=== PATIENT | male | born 1940 | race Two or more races ===

== ENCOUNTER → 2018-10-02 | Outpatient (CLI) | payer MEDICARE ==
[2018-10-02 12:20] LABS: ALANINE AMINOTRANSFERASE 37 U/L (21-72); ALBUMIN 4.6 g/dL (3.5-5.0); ALKALINE PHOSPHATASE 56 U/L (38-126); ANION GAP 7 (5-19); ASPARTATE AMINO TRANSFERASE 26 U/L (17-59); BILIRUBIN,DIRECT 0.1 mg/dL (0.0-0.4); BILIRUBIN,TOTAL 0.9 mg/dL (0.2-1.3); BLOOD UREA NITROGEN 18 mg/dL (7-20); CARBON DIOXIDE 32 mmol/L (22-30); CHLORIDE 105 mmol/L (98-107); GLUCOSE 92 mg/dL (75-110); POTASSIUM 5.1 mmol/L (3.6-5.0); SODIUM 143.7 mmol/L (137-145); TOTAL PROTEIN 6.7 g/dL (6.3-8.2)
[2018-10-02 12:21] LABS: ABSOLUTE MONOCYTES (AUTO) 0.5 10^3/uL (0.1-1.4); ABSOLUTE NEUT (AUTO) 2.7 10^3/uL (1.7-8.2); BASOPHILS % (AUTO) 0.4 % (0-2); EOSINOPHILS % (AUTO) 0.9 % (0-6); HEMATOCRIT 40.1 % (37.9-51.0); HEMOGLOBIN 13.6 g/dL (13.5-17.0); LYMPHOCYTES % (AUTO) 38.5 % (13-45); MEAN CORPUSCULAR HEMOGLOBIN 31.4 pg (27.0-33.4); MEAN CORPUSCULAR HGB CONC 33.9 g/dL (32.0-36.0); MEAN CORPUSCULAR VOLUME 93 fl (80-97); MONOCYTES % (AUTO) 8.6 % (3-13); RED BLOOD COUNT 4.32 10^6/uL (4.35-5.55); RED CELL DISTRIBUTION WIDTH 15.7 % (11.5-14.0); SEGMENTED NEUTROPHILS % (AUTO) 51.6 % (42-78); TOTAL CELLS COUNTED % (AUTO) 100 %; WHITE BLOOD COUNT 5.3 10^3/uL (4.0-10.5)
[2018-10-02 12:41] LABS: CHOLESTEROL 122.43 mg/dL (0-200); TRIGLYCERIDES 71 mg/dL (<150)
[2018-10-02 12:52] LABS: DIRECT LDL 68 mg/dL (<100)
[2018-10-02 12:59] LABS: PLATELET COUNT 32 10^3/uL (150-450)
[2018-10-04 11:35] LABS: PLATELET COUNT 33 10^3/uL (150-450)
== END ==
LOC: LAB 10:38
PROVIDERS: ATTEND Internal Medicine
DX: Z00.00 Encounter for general adult medical examination without abnormal findings (principal); D69.6 Thrombocytopenia, unspecified; I25.119 Atherosclerotic heart disease of native coronary artery with unspecified angina pectoris; I10 Essential (primary) hypertension; E78.5 Hyperlipidemia, unspecified; Z79.899 Other long term (current) drug therapy; Z68.22 Body mass index [BMI] 22.0-22.9, adult
CPT/HCPCS: 36415; 80053; 80061; 82652; 83036; 84443; 85025; 85049

== ENCOUNTER → 2018-12-19 | Outpatient (CLI) | payer MEDICARE ==
[2018-12-19 10:13] LABS: ANION GAP 9 (5-19); BLOOD UREA NITROGEN 19 mg/dL (7-20); CARBON DIOXIDE 30 mmol/L (22-30); CHLORIDE 105 mmol/L (98-107); GLUCOSE 92 mg/dL (75-110); POTASSIUM 5.2 mmol/L (3.6-5.0); SODIUM 143.9 mmol/L (137-145)
[2018-12-19 10:20] LABS: PLATELET COUNT 28 10^3/uL (150-450)
[2018-12-20 10:37] LABS: PATH REVIEW PATHOLOGIST REVIEWED
== END ==
LOC: OD 09:07
PROVIDERS: ATTEND Internal Medicine
DX: N19 Unspecified kidney failure (principal); D69.6 Thrombocytopenia, unspecified
CPT/HCPCS: 36415; 80048; 85049

== ENCOUNTER 2019-01-03 08:30 | Outpatient (CLI) | payer MEDICARE ==
[~2019-01-03 08:30] MED LIST: ACETAMINOPHEN 325 MG TABLET PO PRN; DIPHENHYDRAMINE HCL 50 MG in NORMAL SALINE 50 ML IV PRN; NORMAL SALINE 250 ML IV PRN; NORMAL SALINE IV PRN; RITUXIMAB IV PRN
[2019-01-03 09:22] VITALS: BP 105/47
== END 2019-01-03 13:27 | disposition home or self-care (01) ==
LOC: II 08:30 → 5TH 08:33 → II 13:27
PROVIDERS: ATTEND Internal Medicine Hematology & Oncology
PROC: 3E0330M Introduction of Antineoplastic, Monoclonal Antibody, into Peripheral Vein, Percutaneous Approach (ICD-10-PCS; principal; 2019-01-03)
PROC: 3E033GC Introduction of Other Therapeutic Substance into Peripheral Vein, Percutaneous Approach (ICD-10-PCS; 2019-01-03)
DX: D69.3 Immune thrombocytopenic purpura (principal)
CPT/HCPCS: 96413; 96415; A9270; J1200; J7040; J9312 ×2; 96367

== ENCOUNTER 2019-01-10 08:21 | Outpatient (CLI) | payer MEDICARE ==
[~2019-01-10 08:21] MED LIST changes: +NORMAL SALINE 250 ML @ KVO IV PRN; -NORMAL SALINE 250 ML IV PRN
[2019-01-10 08:42] VITALS: BP 118/44
== END 2019-01-10 11:45 | disposition home or self-care (01) ==
LOC: II 08:21 → 5TH 08:22 → II 11:45
PROVIDERS: ATTEND Internal Medicine Hematology & Oncology
PROC: 3E0430M Introduction of Antineoplastic, Monoclonal Antibody, into Central Vein, Percutaneous Approach (ICD-10-PCS; principal; 2019-01-10)
PROC: 3E043GC Introduction of Other Therapeutic Substance into Central Vein, Percutaneous Approach (ICD-10-PCS; 2019-01-10)
DX: D69.3 Immune thrombocytopenic purpura (principal)
CPT/HCPCS: 96413; 96415; 96365; A9270; J1200; J7040; J9312 ×2; 96367

== ENCOUNTER 2019-01-17 08:20 | Outpatient (CLI) | payer MEDICARE ==
[~2019-01-17 08:20] MED LIST changes: -NORMAL SALINE 250 ML @ KVO IV PRN
[2019-01-17 08:38] VITALS: BP 114/43
[2019-01-17] MEDS ORDERED: NORMAL SALINE 250 ML @ KVO IV PRN (09:21)
[2019-01-18] MEDS ORDERED: DIPHENHYDRAMINE 50 MG in NS 50 ML IV PRN (05:00)
[2019-01-18] MEDS ORDERED: NORMAL SALINE 250 ML @ KVO IV PRN (05:00)
== END 2019-01-17 13:40 | disposition home or self-care (01) ==
LOC: II 08:20 → 5TH 08:20 → II 13:40
PROVIDERS: ATTEND Internal Medicine
PROC: 3E0330M Introduction of Antineoplastic, Monoclonal Antibody, into Peripheral Vein, Percutaneous Approach (ICD-10-PCS; principal; 2019-01-17)
PROC: 3E033GC Introduction of Other Therapeutic Substance into Peripheral Vein, Percutaneous Approach (ICD-10-PCS; 2019-01-17)
DX: D69.3 Immune thrombocytopenic purpura (principal)
CPT/HCPCS: 96413; 96415; 96367; A9270; J1200; J7040; J9312 ×2; 96365

== ENCOUNTER 2019-01-24 08:35 | Outpatient (CLI) | payer MEDICARE ==
[~2019-01-24 08:35] MED LIST changes: +DIPHENHYDRAMINE 50 MG in NS 50 ML IV PRN; -DIPHENHYDRAMINE HCL 50 MG in NORMAL SALINE 50 ML IV PRN; -NORMAL SALINE IV PRN; -RITUXIMAB IV PRN
[2019-01-24] MEDS ORDERED: NORMAL SALINE 250 ML IV PRN (08:49)
[2019-01-24] MEDS ORDERED: RITUXIMAB IV PRN (08:56)
[2019-01-24] MEDS ORDERED: NORMAL SALINE IV PRN (08:56)
[2019-01-24 10:12] VITALS: BP 110/39
== END 2019-01-24 13:42 | disposition home or self-care (01) ==
LOC: II 08:35 → 5TH 08:37 → II 13:42
PROVIDERS: ATTEND Internal Medicine Hematology & Oncology
PROC: 3E0330M Introduction of Antineoplastic, Monoclonal Antibody, into Peripheral Vein, Percutaneous Approach (ICD-10-PCS; principal; 2019-01-24)
PROC: 3E033GC Introduction of Other Therapeutic Substance into Peripheral Vein, Percutaneous Approach (ICD-10-PCS; 2019-01-24)
DX: D69.3 Immune thrombocytopenic purpura (principal)
CPT/HCPCS: 96413; 96415; 96367; A9270; J1200; J7040; J9312 ×2; 96365

== ENCOUNTER → 2019-02-19 | Outpatient (CLI) | payer MEDICARE, OTHER ==
[2019-02-19 10:55] LABS: CHOLESTEROL 122.21 mg/dL (0-200); TRIGLYCERIDES 46 mg/dL (<150)
[2019-02-19 11:06] LABS: DIRECT LDL 65 mg/dL (<100)
[2019-02-19 11:20] LABS: PLATELET COUNT 37 10^3/uL (150-450)
== END ==
LOC: OD 09:36
PROVIDERS: ATTEND Internal Medicine
DX: E78.5 Hyperlipidemia, unspecified (principal); D69.6 Thrombocytopenia, unspecified
CPT/HCPCS: 36415; 80061; 85049

== ENCOUNTER → 2019-05-20 | Outpatient (CLI) | payer MEDICARE, OTHER ==
[2019-05-20 10:30] LABS: PLATELET COUNT 42 10^3/uL (150-450)
[2019-05-20 10:48] LABS: ALBUMIN 3.8 g/dL (3.5-5.0); ALKALINE PHOSPHATASE 70 U/L (38-126); ASPARTATE AMINO TRANSFERASE 32 U/L (17-59); BILIRUBIN,DIRECT 0.1 mg/dL (0.0-0.4); BILIRUBIN,TOTAL 0.9 mg/dL (0.2-1.3); BLOOD UREA NITROGEN 16 mg/dL (7-20); CALCIUM 9.6 mg/dL (8.4-10.2); CHOLESTEROL 113.12 mg/dL (0-200); GLUCOSE 94 mg/dL (75-110); POTASSIUM 4.8 mmol/L (3.6-5.0); TOTAL PROTEIN 6.2 g/dL (6.3-8.2); TRIGLYCERIDES 59 mg/dL (<150)
[2019-05-20 10:53] LABS: ANION GAP 5 (5-19); CARBON DIOXIDE 30 mmol/L (22-30); CHLORIDE 106 mmol/L (98-107)
[2019-05-20 10:59] LABS: DIRECT LDL 61 mg/dL (<100)
== END ==
LOC: OD 08:45
PROVIDERS: ATTEND Family Medicine
DX: D69.6 Thrombocytopenia, unspecified (principal); E78.5 Hyperlipidemia, unspecified; R10.9 Unspecified abdominal pain
CPT/HCPCS: 36415; 80053; 80061; 85049

== ENCOUNTER → 2019-09-12 | Outpatient (CLI) | payer MEDICARE, OTHER ==
[2019-09-12 10:32] LABS: ANION GAP 8 (5-19); BLOOD UREA NITROGEN 21 mg/dL (7-20); C-REACTIVE PROTEIN 27.1 mg/L (<10.0); CALCIUM 9.2 mg/dL (8.4-10.2); CARBON DIOXIDE 26 mmol/L (22-30); CHLORIDE 104 mmol/L (98-107); GLUCOSE 106 mg/dL (75-110); POTASSIUM 5.2 mmol/L (3.6-5.0)
[2019-09-13 10:28] LABS: ABSOLUTE LYMPHOCYTES (AUTO) 3.6 10^3/uL (0.5-4.7); ABSOLUTE MONOCYTES (AUTO) 0.5 10^3/uL (0.1-1.4); ABSOLUTE NEUT (AUTO) 2.1 10^3/uL (1.7-8.2); BASOPHILS % (AUTO) 0.4 % (0-2); EOSINOPHILS % (AUTO) 0.3 % (0-6); HEMATOCRIT 33.3 % (37.9-51.0); HEMOGLOBIN 11.1 g/dL (13.5-17.0); LYMPHOCYTES % (AUTO) 57.7 % (13-45); MEAN CORPUSCULAR HGB CONC 33.5 g/dL (32.0-36.0); MEAN CORPUSCULAR VOLUME 93 fl (80-97); MONOCYTES % (AUTO) 8.1 % (3-13); RED BLOOD COUNT 3.59 10^6/uL (4.35-5.55); RED CELL DISTRIBUTION WIDTH 15.5 % (11.5-14.0); SEGMENTED NEUTROPHILS % (AUTO) 33.5 % (42-78); TOTAL CELLS COUNTED % (AUTO) 100 %; WHITE BLOOD COUNT 6.3 10^3/uL (4.0-10.5)
[2019-09-13 10:59] LABS: PLATELET COUNT 53 10^3/uL (150-450)
[2019-09-13 11:05] LABS: ERYTHROCYTE SEDIMENTATION RATE 17 mm/hr (0-20)
== END ==
LOC: OD 08:38
PROVIDERS: ATTEND Family Medicine
DX: I10 Essential (primary) hypertension (principal); D69.6 Thrombocytopenia, unspecified; M25.50 Pain in unspecified joint
CPT/HCPCS: 36415; 80048; 85025; 85652; 86140; 86200; 86430

== ENCOUNTER → 2019-09-19 | Outpatient (CLI) | payer MEDICARE, OTHER ==
--- NOTE | 2019-09-19 13:45 | RADIOLOGY REPORT (SQ) ---
EXAM DESCRIPTION: CHEST PA/LATERAL COMPLETED DATE/TIME: 09/19/2019 11:38 am REASON FOR STUDY: RIB PAIN ON RT SIDE COMPARISON: None. EXAM PARAMETERS: NUMBER OF VIEWS: two views TECHNIQUE: Digital Frontal and Lateral radiographic views of the chest acquired. RADIATION DOSE: NA LIMITATIONS: none FINDINGS: LUNGS AND PLEURA: No opacities, masses or pneumothorax. No pleural effusion. MEDIASTINUM AND HILAR STRUCTURES: No masses or contour abnormalities. HEART AND VASCULAR STRUCTURES: Heart size is normal, but there is some left ventricular prominence. BONES: No acute findings. HARDWARE: Pacemaker/defibrillator. Sternotomy wires. OTHER: No other significant finding. IMPRESSION: Normal heart size with left ventricular prominence. No acute cardiopulmonary finding. TECHNICAL DOCUMENTATION: JOB ID: [id number] 2010 [employer]- All Rights Reserved Reading location - IP/workstation name: [email or web address]
== END ==
LOC: OD 11:20
PROVIDERS: ATTEND Family Medicine
DX: R07.81 Pleurodynia (principal)
CPT/HCPCS: 71046

== ENCOUNTER → 2019-10-04 | Outpatient (CLI) | payer MEDICARE, OTHER ==
--- NOTE | 2019-10-04 14:09 | RADIOLOGY REPORT (SQ) ---
EXAM DESCRIPTION: CT CHEST WITH COMPLETED DATE/TIME: 10/04/2019 1:49 pm REASON FOR STUDY: R06.6 HICCOUGH R06.6 HICCOUGH M54.2 CERVICALGIA R07.9 CHEST PAIN, UNSPECIFIED COMPARISON: None. TECHNIQUE: CT scan of the chest performed using helical scanning technique with dynamic intravenous contrast injection. Images reviewed with lung, soft tissue and bone windows. Reconstructed coronal and sagittal MPR and MIP images reviewed. All images stored on PACS. All CT scanners at this facility use dose modulation, iterative reconstruction, and/or weight based d osing when appropriate to reduce radiation dose to as low as reasonably achievable (ALARA). [facility]: Dose Right [facility]: CareDose [facility]: Dose Right [facility]: Teradose 4D [facility]: [employer] CONTRAST TYPE AND DOSE: 65 mL Omnipaque 350- low osmolar. RENAL FUNCTION: BUN 21 creatinine 1.18 RADIATION DOSE: . LIMITATIONS: None. FINDINGS: LUNGS AND PLEURA: No opacities, nodules, masses. No pneumothorax. No effusions. HILAR AND MEDIASTINAL STRUCTURES: No identified masses or abnormal nodes. HEART AND VASCULAR STRUCTURES: No aneurysm or dissection. No central pulmonary emboli. No pericardi al effusion. Prior CABG. HARDWARE: Sternotomy wires. Pacemaker/ defibrillator. UPPER ABDOMEN: See separate report of the CT of the abdomen. THYROID AND OTHER SOFT TISSUES: No masses. No adenopathy. BONES: No significant finding. OTHER: No other significant finding. IMPRESSION: There are no acute findings in the thorax. TECHNICAL DOCUMENTATION: JOB ID: [id number] Quality ID # [id number]: Final reports with documentation of one or more dose reduction techniques (e.g., Au tomated exposure control, adjustment of the mA and/or kV according to patient size, use of iterative reconstruction technique) 2010 [employer]- All Rights Reserved Reading location - IP/workstation name: [email or web address]
--- NOTE | 2019-10-04 15:59 | RADIOLOGY REPORT (SQ) ---
EXAM DESCRIPTION: CT ABD/PELVIS WITH IV ORAL COMPLETED DATE/TIME: 10/04/2019 1:49 pm REASON FOR STUDY: R10.9 UNSPECIFIED ABDOMINAL PAIN R06.6 HICCOUGH M54.2 CERVICALGIA R07.9 CHEST P AIN, UNSPECIFIED COMPARISON: None. TECHNIQUE: CT scan of the abdomen and pelvis performed using helical scanning technique with dynamic intravenous contrast injection. Patient was given oral contrast. Images reviewed with lung, soft ti ssue, and bone windows. Reconstructed coronal and sagittal MPR images reviewed. Delayed images for ev aluation of the urinary system also acquired. All images stored on PACS. All CT scanners at this facility use dose modulation, iterative reconstruction, and/or weight based d osing when appropriate to reduce radiation dose to as low as reasonably achievable (ALARA). [facility]: Dose Right [facility]: CareDose [facility]: Dose Right [facility]: Teradose 4D [facility]: [facility] CONTRAST TYPE AND DOSE: contrast/concentration: Isovue 350.00 mg/ml; Total Contrast Delivered: 65.0 ml; Total Saline Delivered: 65.0 ml RENAL FUNCTION: Creatinine 1.18 RADIATION DOSE: . LIMITATIONS: None. FINDINGS: LOWER CHEST: See separate report of the CT of the chest. LIVER: Normal size. No masses. No dilated ducts. SPLEEN: Mild splenomegaly measuring 12.6 cm. No focal lesions. PANCREAS: No masses. No significant calcifications. No adjacent inflammation or peripancreatic fluid collections. Pancreatic duct not dilated. GALLBLADDER: Decompressed gallbladder with multiple calcified arch stones. No definitive pericholecy stic inflammatory change. ADRENAL GLANDS: No significant masses or asymmetry. RIGHT KIDNEY AND URETER: No solid masses. No significant calcifications. No hydronephrosis or hyd roureter. LEFT KIDNEY AND URETER: Intermediate density 2.2 cm left interpolar rib lesion, possibly hemorrhagic/ proteinaceous cysts although indeterminate. No significant calcifications. No hydronephrosis or h ydroureter. AORTA AND VESSELS: Aortoiliac atherosclerosis without aneurysm. Patent celiac, SMA, bilateral renals with scattered ostial calcifications. No high-grade stenosis. RETROPERITONEUM: No retroperitoneal adenopathy, hemorrhage or masses. BOWEL AND PERITONEAL CAVITY: No evidence of intestinal obstruction. No focal bowel wall thickening. Moderate formed stool throughout the colon with few gas fluid levels. Scattered colonic diverticula . APPENDIX: Not clearly identified. PELVIS: No mass. No free fluid. Normal bladder. ABDOMINAL WALL: No masses. No hernias. BONES: No significant or acute findings. OTHER: No other significant finding. IMPRESSION: 1. Borderline splenomegaly etiology uncertain. 2. Cholelithiasis without secondary evidence of acute cholecystitis. 3. Moderate formed stool throughout the colon. 4. Intermediate density left renal lesion, possibly proteinaceous cyst but technically indeterminate on this single phase scan. Consider multiphase scan or renal ultrasound for more definitive charact erization. TECHNICAL DOCUMENTATION: JOB ID: [id number] Quality ID # [id number]: Final reports with documentation of one or more dose reduction techniques (e.g., Au tomated exposure control, adjustment of the mA and/or kV according to patient size, use of iterative reconstruction technique) 2010 [employer]- All Rights Reserved Reading location - IP/workstation name: [email or web address]
--- NOTE | 2019-10-04 17:08 | RADIOLOGY REPORT (SQ) ---
EXAM DESCRIPTION: CT SOFT TISSUE NECK COMBO COMPLETED DATE/TIME: 10/04/2019 1:49 pm REASON FOR STUDY: R07.9 CHEST PAIN, UNSPECIFIED R06.6 HICCOUGH M54.2 CERVICALGIA R07.9 CHEST PAIN , UNSPECIFIED COMPARISON: None. TECHNIQUE: Post IV contrasted scanning from skull base through lung apices with review of bone, soft tissue and lung windows. Reconstructed coronal and sagittal MPR images reviewed. All images stored on PACS. All CT scanners at this facility use dose modulation, iterative reconstruction, and/or weight based d osing when appropriate to reduce radiation dose to as low as reasonably achievable (ALARA). [facility]: Dose Right [facility]: CareDose [facility]: Dose Right [facility]: Teradose 4D [facility]: [employer] CONTRAST TYPE AND DOSE: See abdomen RENAL FUNCTION: See abdomen RADIATION DOSE: mGy. LIMITATIONS: None. FINDINGS: SKULL BASE: Intact. MAJOR SALIVARY GLANDS: No solid or cystic masses. No inflammatory changes. LYMPHADENOPATHY: No adenopathy. MUCOSAL MASSES OR ASYMMETRY: Questionable esophageal wall thickening at the level of the thoracic in let. No additional mucosal masses or asymmetry. LARYNX/CORDS: No abnormal findings. VASCULAR STRUCTURES: The major vessels are patent. LUNG APICES: See same-day chest CT BONES: No acute bony abnormality. No suspicious osseous lesions. Multilevel disc height loss throug hout the cervical spine with small posterior disc osteophyte complexes. No evidence of high-grade os seous spinal canal stenosis or neural foraminal narrowing. THYROID: Normal size. No masses. PARANASAL SINUSES: Clear. OTHER: Atherosclerosis of the bilateral carotid bulbs with at least moderate stenosis on the right an d mild stenosis on the left secondary to dense calcified plaque. Patent visualized vertebral arterie s. IMPRESSION: 1. Questionable esophageal wall thickening at the level of the thoracic inlet. Endosco py could be considered further characterization. 2. Otherwise, unremarkable CT of the neck without evidence of acute process. TECHNICAL DOCUMENTATION: JOB ID: [id number] [facility] [id number]: Final reports with documentation of one or more dose reduction techniques (e.g., Automate d exposure control, adjustment of the mA and/or kV according to patient size, use of iterative recons truction technique) 2010 [employer]- All Rights Reserved Reading location - IP/workstation name: [email or web address]
== END ==
LOC: RAD 12:58
PROVIDERS: ATTEND Family Medicine
DX: R07.9 Chest pain, unspecified (principal); K80.20 Calculus of gallbladder without cholecystitis without obstruction; R10.9 Unspecified abdominal pain; M54.2 Cervicalgia; R06.6 Hiccough; I65.23 Occlusion and stenosis of bilateral carotid arteries; N28.9 Disorder of kidney and ureter, unspecified
CPT/HCPCS: 70492; 71260; 74177

== ENCOUNTER → 2019-10-11 | Outpatient (CLI) | payer MEDICARE, OTHER ==
--- NOTE | 2019-10-11 16:06 | RADIOLOGY REPORT (SQ) ---
EXAM DESCRIPTION: U/S RETROPERITON (RENAL/AORTA) COMPLETED DATE/TIME: 10/11/2019 3:34 pm REASON FOR STUDY: N28.89 OTHER SPECIFIED DISORDERS OF KIDNEY AND URETER N28.89 OTHER SPECIFIED DISO RDERS OF KIDNEY AND URETER COMPARISON: 10/04/2018 CT. TECHNIQUE: Dynamic and static grayscale images acquired of the kidneys and bladder and recorded on P ACS. Additional selected color Doppler and spectral images recorded. LIMITATIONS: None. FINDINGS: RIGHT KIDNEY: Normal size measuring 9.6 cm. Normal echogenicity. No solid or suspicious ma sses. No hydronephrosis. No calcifications. LEFT KIDNEY: Normal size measuring 10.3 cm. Normal echogenicity. No solid or suspicious masses. Th ere is a cyst on the lateral interpolar region measuring up to 2.4 cm with a single thin septation. No hydronephrosis. No calcifications. BLADDER: No masses. OTHER FINDINGS: Cholelithiasis. IMPRESSION: 1. Previously described left renal lesion corresponds to a simple cyst with thin septat ion measuring 2.4 cm. 2. Cholelithiasis. TECHNICAL DOCUMENTATION: JOB ID: [id number] 2010 [employer]- All Rights Reserved Reading location - IP/workstation name: [email or web address]
== END ==
LOC: RAD 15:18
PROVIDERS: ATTEND Family Medicine
DX: N28.1 Cyst of kidney, acquired (principal); K80.20 Calculus of gallbladder without cholecystitis without obstruction
CPT/HCPCS: 76770

== ENCOUNTER 2019-10-12 13:18 | Emergency (ER) | payer MEDICARE, OTHER ==
--- NOTE | 2019-10-12 13:43 | ER Document Report ---
ED Medical Screen (RME) - General Chief Complaint: General Weakness Stated Complaint: WEAKNESS Time Seen by Provider: 10/12/19 13:29 Primary Care Provider: MELVA MCLAUGHLIN MD [Primary Care Provider] - Follow up as needed Notes: HPI: History is obtained from the granddaughter. A 79-year-old male brought in for continued decline over the last month. She states that patient began having hiccups and abdominal discomfort a month ago. Patient was taken to [facility] where he had chest x-ray and CT imaging that did not show evidence of blood clot in the lung, showed small renal cyst. They have been f ollowing up with hematology. Patient has a history of CABG in the past and has a pacemaker. She states over the last 2 weeks he has had continued gradual decline. Urine has become darker, patient is not eating or drinking, wants to sleep all the time, has not had fever or significant cough. She reports patient has been much more lethargic and altered mentally over the last 2 weeks I have greeted and performed a rapid initial assessment of this patient. A comprehensive ED assessment and evaluation of the patient, analysis of test results and completion of the medical decision making process will be conducted by additional ED providers PHYSICAL EXAMINATION: GENERAL: Cachectic-appearing, in mild acute distress. HEAD: Atraumatic, normocephalic. EYES: sclera anicteric, conjunctiva are normal. ENT: Slightly dry mucous membranes. NECK: Normal range of motion LUNGS: Normal work of breathing, clear to auscultation HEART: 2+ radial pulses bilaterally regular rate and rhythm ABD: limited by positioning for exam in triage. No tenderness on palpation EXTREMITIES: no pitting or edema. No cyanosis. NEUROLOGICAL: Moves all extremities spontaneously and on command. PSYCH: Patient with somewhat sleepy affect. SKIN: Warm, Dry, poor turgor, no rashes or lesions noted. TRAVEL OUTSIDE OF THE [place] IN LAST 30 DAYS: No - Related Data Allergies/Adverse Reactions: No Known Allergies Allergy (Verified 10/12/19 13:28) Home Medications: zoloft 25. telmisartan 40. atorvastatin 40. carvedilol 3.125. pantoprozole 40. baclofen 10. synthroid 25. vitamin c 1000 Past Medical History - Social History Chew tobacco use (# tins/day): No Frequency of alcohol use: None Drug Abuse: None Physical Exam - Vital signs Vitals: Temp Pulse Resp BP Pulse Ox 97.7 F 79 16 100/50 L 100 10/12/19 13:29 10/12/19 13:29 10/12/19 13:29 10/12/19 13:29 10/12/19 13:29 Course - Vital Signs Vital signs: Temp Pulse Resp BP Pulse Ox 97.7 F 79 16 100/50 L 100 10/12/19 13:29 10/12/19 13:29 10/12/19 13:29 10/12/19 13:29 10/12/19 13:29 Doctor's Discharge - Discharge Referrals: MELVA MCLAUHGLIN MD [Primary Care Provider] - Follow up as needed
--- NOTE | 2019-10-12 14:39 | EKG REPORT ---
SEVERITY:- ABNORMAL ECG - SINUS RHYTHM LEFT BUNDLE BRANCH BLOCK : Confirmed by: Giorgio Meléndez MD 12-Oct-2019 14:39:31
[2019-10-12 14:48] LABS: HEMATOCRIT 35.6 % (37.9-51.0); HEMOGLOBIN 12.2 g/dL (13.5-17.0); MEAN CORPUSCULAR HEMOGLOBIN 31.7 pg (27.0-33.4); MEAN CORPUSCULAR VOLUME 93 fl (80-97); RED BLOOD COUNT 3.84 10^6/uL (4.35-5.55); WHITE BLOOD COUNT 7.4 10^3/uL (4.0-10.5)
[2019-10-12 14:49] LABS: ABSOLUTE MONOCYTES (AUTO) 0.4 10^3/uL (0.1-1.4); ABSOLUTE NEUT (AUTO) 2.9 10^3/uL (1.7-8.2); ALBUMIN 3.5 g/dL (3.5-5.0); ALKALINE PHOSPHATASE 158 U/L (38-126); ANION GAP 6 (5-19); ASPARTATE AMINO TRANSFERASE 80 U/L (17-59); BASOPHILS % (AUTO) 0.2 % (0-2); BILIRUBIN,DIRECT 0.1 mg/dL (0.0-0.4); BILIRUBIN,TOTAL 1.1 mg/dL (0.2-1.3); BLOOD UREA NITROGEN 22 mg/dL (7-20); CARBON DIOXIDE 28 mmol/L (22-30); CHLORIDE 100 mmol/L (98-107); GLUCOSE 92 mg/dL (75-110); LYMPHOCYTES % (AUTO) 54.6 % (13-45); MEAN CORPUSCULAR HGB CONC 34.2 g/dL (32.0-36.0); MONOCYTES % (AUTO) 5.8 % (3-13); POTASSIUM 4.9 mmol/L (3.6-5.0); RED CELL DISTRIBUTION WIDTH 16.2 % (11.5-14.0); SEGMENTED NEUTROPHILS % (AUTO) 39.4 % (42-78); TOTAL CELLS COUNTED % (AUTO) 100 %; TOTAL PROTEIN 6.4 g/dL (6.3-8.2)
[2019-10-12 14:50] LABS: CREATINE KINASE < 20 U/L (55-170)
--- NOTE | 2019-10-12 15:15 | RADIOLOGY REPORT (SQ) ---
EXAM DESCRIPTION: CHEST SINGLE VIEW COMPLETED DATE/TIME: 10/12/2019 2:35 pm REASON FOR STUDY: Weakness COMPARISON: 09/19/2019 EXAM PARAMETERS: NUMBER OF VIEWS: One view. TECHNIQUE: Single frontal radiographic view of the chest acquired. RADIATION DOSE: NA LIMITATIONS: None. FINDINGS: LUNGS AND PLEURA: No opacities, masses or pneumothorax. No pleural effusion. MEDIASTINUM AND HILAR STRUCTURES: No masses. Contour normal. HEART AND VASCULAR STRUCTURES: Cardiac enlargement. No overt failure. BONES: No acute findings. HARDWARE: Pacemaker defibrillator. OTHER: No other significant finding. IMPRESSION: Cardiac enlargement without failure. TECHNICAL DOCUMENTATION: JOB ID: [id number] 2010 [employer]- All Rights Reserved Reading location - IP/workstation name: [email or web address]
[2019-10-12 15:30] LABS: PLATELET COUNT 63 10^3/uL (150-450)
[2019-10-12] MEDS ORDERED: NORMAL SALINE 500 ML IV ONE ×2 (16:47→16:48)
--- NOTE | 2019-10-12 18:03 | RADIOLOGY REPORT (SQ) ---
EXAM DESCRIPTION: ABDOMEN 2 VIEWS COMPLETED DATE/TIME: 10/12/2019 5:39 pm REASON FOR STUDY: splenomegaly and pain (TTP)/PT HAD CXR EARLIER TODAY COMPARISON: 10/04/2019 NUMBER OF VIEWS: One view. TECHNIQUE: Supine radiographic image of the abdomen acquired. LIMITATIONS: None. FINDINGS: BOWEL GAS PATTERN: Non-obstructive bowel gas pattern. No dilated loops. CALCIFICATIONS: Calcified gallstones. SOFT TISSUES: Splenomegaly, 17.8 cm. HARDWARE: None in the abdomen. BONES: No acute fracture. No worrisome bone lesions. OTHER: No other significant finding. IMPRESSION: NO RADIOGRAPHIC EVIDENCE FOR ACUTE ABDOMINAL DISEASE. Splenomegaly. TECHNICAL DOCUMENTATION: JOB ID: [id number] [place]-72 2010 [employer]- All Rights Reserved Reading location - IP/workstation name: [email or web address]formerly [email or web address])
[2019-10-12 18:35] LABS: APPEARANCE,URINE SLIGHTLY-CLOUDY; BILIRUBIN,URINE NEGATIVE (NEGATIVE); COLOR,URINE YELLOW; GLUCOSE, URINE NEGATIVE (NEGATIVE); KETONES,URINE NEGATIVE (NEGATIVE); LEUKOCYTE ESTERASE,URINE NEGATIVE (NEGATIVE); NITRITE,URINE NEGATIVE (NEGATIVE); PROTEIN,URINE NEGATIVE (NEGATIVE); URINE SPECIFIC GRAVITY 1.018
[2019-10-12 20:19] VITALS: BP 122/42
--- NOTE | 2019-10-13 13:29 | ER Document Report ---
Entered by EMILIA HERNANDEZ SCRIBE 10/[birth year]191943 Acting as scribe for:IMAN SANCHEZ MD ED General - General Chief Complaint: General Weakness Stated Complaint: WEAKNESS Time Seen by Provider: 10/12/19 13:29 Primary Care Provider: MELVA MCLAUGHLIN MD [Primary Care Provider] - Follow up as needed Notes: This 79-year-old male patient presents to the emergency department today with complaints of "pain everywhere" for the last month according to family. The patient himself states he has no complaints and he denies any pain, shortness of breath, headaches, weakness, chest pain, or abdominal pain. Family at bedside states that this is "not true at all". Patient has been seen recently by multiple different doctors for a myriad of symptoms. On 09/27 the patient was seen at [facility] for "hiccups" per family and they did a chest x-ray which was negative and he was sent home. The patient's primary care doctor ordered a CAT scan on 10/04 which showed a mass versus cyst on the left kidney. TRAVEL OUTSIDE OF THE [place] IN LAST 30 DAYS: No - Related Data Allergies/Adverse Reactions: No Known Allergies Allergy (Verified 10/12/19 13:28) Home Medications: zoloft 25. telmisartan 40. atorvastatin 40. carvedilol 3.125. pantoprozole 40. baclofen 10. synthroid 25. vitamin c 1000 Past Medical History - General Information source: Patient - Social History Smoking Status: Former Smoker Chew tobacco use (# tins/day): No Frequency of alcohol use: None Drug Abuse: None Lives with: Family Family History: Reviewed & Not Pertinent Patient has suicidal ideation: No Patient has homicidal ideation: No - Past Medical History Cardiac Medical History: Reports: Hx Congestive Heart Failure, Hx Heart Attack, Hx Hypercholesterolemia Musculoskeletal Medical History: Reports Hx Arthritis Past Surgical History: Reports: Hx Appendectomy, Hx Cardiac Surgery - Pacemaker, Hx Open Heart Surgery - CABG Review of Systems - Review of Systems -: Yes ROS unobtainable due to patient's medical condition - patient's history is unreliable per family Physical Exam - Vital signs Vitals: Temp Pulse Resp BP Pulse Ox 97.7 F 79 16 100/50 L 100 10/12/19 13:29 10/12/19 13:29 10/12/19 13:29 10/12/19 13:29 10/12/19 13:29 - Notes Notes: Physical Exam: General: Alert, appears frail and elderly. HEENT: Normocephalic. Atraumatic. PERRL. Extraocular movements intact. Oropharynx clear. Neck: Supple. Non-tender. Respiratory: No respiratory distress. Clear and equal breath sounds bilaterally. Cardiovascular: Regular rate and rhythm. Abdominal: Normal Inspection. Non-tender. No distension. Normal Bowel Sounds. Back: No gross abnormalities. Extremities: Moves all four extremities. Upper extremities: Normal inspection. Normal ROM. Lower extremities: Able to lift both legs off the bed Neurological: At baseline per family Skin: Warm. Dry. Normal color. Course - Re-evaluation Re-evalutation: 10/12/19 19:37 Patient much more alert skin color is pink and having general conversation at this time. Cap refill is less than 3 seconds - Vital Signs Vital signs: Temp Pulse Resp BP Pulse Ox 97.7 F 79 20 111/44 L 98 10/12/19 13:29 10/12/19 13:29 10/12/19 18:00 10/12/19 16:00 10/12/19 18:00 - Laboratory Result Diagrams: 10/12/19 14:15 10/12/19 14:15 Laboratory results interpreted by me: 10/12/19 10/12/19 10/12/19 14:15 14:15 14:15 RBC 3.84 L Hgb 12.2 L Hct 35.6 L RDW 16.2 H Plt Count 63 L Lymph % (Auto) 54.6 H Seg Neutrophils % 39.4 L Sodium 134.3 L BUN 22 H AST 80 H ALT 85 H Alkaline Phosphatase 158 H Creatine Kinase < 20 L TSH 5.74 H Urine Urobilinogen Urine Ascorbic Acid 10/12/19 17:50 RBC Hgb Hct RDW Plt Count Lymph % (Auto) Seg Neutrophils % Sodium BUN AST ALT Alkaline Phosphatase Creatine Kinase TSH Urine Urobilinogen 2.0 H Urine Ascorbic Acid 40 H 10/12/19 19:37 Patient has low platelet count of 63 and has a diagnosis of TTP. Patient has splenomegaly. Patient recently dehydrated. 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 It produces thyroid hormone. Thyroid hormone regulates the metabolism. Hypothyroidism means the gland is not turning out enough thyroid hormone. Too much thyroid hormone "turns up the thermostat" too high, causing weight loss, nervousness, rapid heartbeat, and weakness. Too little thyroid hormone causes fatigue, depression, weight gain, and hair thinning. Hypothyroidism is treated with thyroid replacement pills. Testing can show if there are other hormone problems, and can determine whether the pituitary gland or thyroid gland is at fault. Contact the doctor or return if you change for the worse -- for example, palpitations, severe nervousness, chest pain, shortness of breath, worsening weakness or lightheadedness.Dehydration Dehydration can result from vomiting or diarrhea, fever, or decreased intake of fluids. If severe, hospitalization and intravenous fluids may be required. Most cases are treated at home with fluids by mouth. For the next 24 hours, drink lots of clear fluids. In mild cases, this can be soda pop or sports drinks. For more severe dehydration, the doctor may recommend special fluids such as Pedialyte or Lytren. Try to get three liters (3 quarts) of fluid per day. If vomiting occurs, continue to drink the fluids frequently (every 15 to 20 minutes), but in small amounts (one or two ounces). Depending on the type of dehydration, the doctor may prescribe antinausea medicine or potassium replacements. Call the doctor or return for re-examination if you become progressively weak, vomit repeatedly, or have other new symptoms. You have TTP and splenomegaly. You also have chronic low platelet count. You have followed by hematology and further work-up per hematology regarding a bone marrow biopsy and understands plan for. Continue taking your Synthroid replacement medications and adjustments will be made based on your managing doctor at this time. Referrals: MELVA MCLAUGHLIN MD [Primary Care Provider] - Follow up as needed I personally performed the services described in the documentation, reviewed and edited the documentation which was dictated to the scribe in my presence, and it accurately records my words and actions.
== END 2019-10-12 20:19 | disposition home or self-care (01) ==
LOC: ER 13:18
DX: E03.9 Hypothyroidism, unspecified (principal); M31.1 Thrombotic microangiopathy; R16.1 Splenomegaly, not elsewhere classified; E86.0 Dehydration; R53.1 Weakness; E78.00 Pure hypercholesterolemia, unspecified; I50.9 Heart failure, unspecified; Z95.1 Presence of aortocoronary bypass graft; Z95.0 Presence of cardiac pacemaker; I25.2 Old myocardial infarction
CPT/HCPCS: 93005; 99285; 96360; 96361; 36415; 82550; 83690; 84443; 85025; 80053; 81001; 84484; 74019; 71045; 93010; J7040

== ENCOUNTER → 2019-10-21 | Outpatient (CLI) | payer MEDICARE, OTHER ==
--- NOTE | 2019-10-21 16:16 | RADIOLOGY REPORT (SQ) ---
EXAM DESCRIPTION: CT HEAD COMBO COMPLETED DATE/TIME: 10/21/2019 4:03 pm REASON FOR STUDY: R29.818 OTHER SYMPTOMS AND SIGNS INVOLVING THE NERVOUS SYSTEM F05 DELIRIUM DUE TO KNOWN PHYSIOLOGICAL CONDITION COMPARISON: None. TECHNIQUE: Axial images acquired through the brain without and with intravenous contrast. Images re viewed with bone, brain, and subdural windows. Additional sagittal and coronal reconstructions were generated. Images stored on PACS. All CT scanners at this facility use dose modulation, iterative reconstruction, and/or weight based d osing when appropriate to reduce radiation dose to as low as reasonably achievable (ALARA). [facility]: Dose Right [facility]: CareDose [facility]: Dose Right [facility]: Teradose 4D [facility]: [employer] CONTRAST TYPE AND DOSE: contrast/concentration: Isovue 350.00 mg/ml; Total Contrast Delivered: 50.0 ml; Total Saline Delivered: 55.0 ml RENAL FUNCTION: BUN 22, creatinine 1.14 RADIATION DOSE: CT Rad equipment meets quality standard of care and radiation dose reduction techniq ues were employed. CTDIvol: 48.7 - 48.7 mGy. DLP: 2106 mGy-cm.. LIMITATIONS: None. FINDINGS: VENTRICLES: Prominent. CEREBRUM: No masses. No hemorrhage. No midline shift. A few areas of low density in the white marleny er most likely due to chronic micro-vascular ischemic change. No evidence for acute infarction. No enhancing lesions. No abnormal enhancement. CEREBELLUM: No masses. No hemorrhage. No alteration of density. No evidence for acute infarction. No enhancing lesions. EXTRAAXIAL SPACES: Mild age-related involutional change. No fluid collections. No masses. No enhan cing lesions. ORBITS AND GLOBE: No intra- or extraconal masses. Normal contour of globe without masses. CALVARIUM: No fracture. PARANASAL SINUSES: No fluid or mucosal thickening. SOFT TISSUES: No mass or hematoma. OTHER: No other significant finding. IMPRESSION: MILD CHRONIC CHANGES OF ATROPHY AND MICROVASCULAR ISCHEMIA. NO ACUTE PROCESS. NO ENHAN CING LESIONS. NO ABNORMAL ENHANCEMENT. EVIDENCE OF ACUTE STROKE: NO. TECHNICAL DOCUMENTATION: JOB ID: [id number] Quality ID # [id number]: Final reports with documentation of one or more dose reduction techniques (e.g., Au tomated exposure control, adjustment of the mA and/or kV according to patient size, use of iterative reconstruction technique) 2010 [employer]- All Rights Reserved Reading location - IP/workstation name: [email or web address]
== END ==
LOC: RAD 15:09
PROVIDERS: ATTEND Internal Medicine Hematology & Oncology
DX: F05 Delirium due to known physiological condition (principal); R29.818 Other symptoms and signs involving the nervous system
CPT/HCPCS: 70470

== ENCOUNTER 2019-11-07 14:48 | Emergency (ER) | payer MEDICARE, OTHER ==
--- NOTE | 2019-11-07 14:57 | ER Document Report ---
ED General - General Chief Complaint: S/S of Possible Stroke Stated Complaint: POSSIBLE STROKE Time Seen by Provider: 11/07/19 14:48 Primary Care Provider: APARNA GAMEZ MD [ACTIVE STAFF] - Follow up as needed Notes: 71-year-old male presents with apparent altered mental status or speech difficulty. Complicated story. EMS does not have much information but upon speaking with patient's daughter it turns out that he was discharged from [facility] and yesterday after a subdural hematoma thought to be traumatic. On discharge he was generally weak and had trouble eating but per staff neurologically was normal and per his daughter was able to walk talk and function normal neurologically. Today they were at the primary care getting all of his meds straightened out and about 30 minutes prior to ED arrival he experienced sudden onset of left-sided facial droop, speech difficulty aphasia with repeating words. Brought in by EMS. Blood sugar normal. TRAVEL OUTSIDE OF THE [place] IN LAST 30 DAYS: No - Related Data Allergies/Adverse Reactions: No Known Allergies Allergy (Verified 11/07/19 14:59) Past Medical History - Social History Smoking Status: Unknown if Ever Smoked Family History: Reviewed & Not Pertinent - Past Medical History Cardiac Medical History: Reports: Hx Congestive Heart Failure, Hx Heart Attack, Hx Hypercholesterolemia Musculoskeletal Medical History: Reports Hx Arthritis Past Surgical History: Reports: Hx Appendectomy, Hx Cardiac Surgery - Pacemaker, Hx Open Heart Surgery - CABG Review of Systems - Review of Systems Notes: REVIEW OF SYSTEMS not obtained secondary to speech difficulty altered mental status PHYSICAL EXAMINATION General: No acute distress, well-nourished Head: Atraumatic, normocephalic ENT: Mouth normal, oropharynx moist, no exudates or tonsillar enlargement Eyes: Conjunctiva normal, pupils equal, lids normal Neck: No JVD, supple, no guarding CVS: Normal rate, regular rhythm, no murmurs Resp: No resp distress, equal and normal breath sounds bilaterally GI: Nondistended, soft, no tenderness to palpation, no rebound or guarding Ext: No deformities, no edema, normal range of motion in upper and lower ext Back: No CVA or midline TTP Skin: No rash, warm Lymphatic: No lymphadeopathy noted Neuro: [id number] Physical Exam - Vital signs Vitals: Pulse Resp BP Pulse Ox 71 14 109/51 L 96 11/07/19 14:48 11/07/19 14:48 11/07/19 14:48 11/07/19 14:48 Course - Re-evaluation Re-evalutation: 11/07/19 17:05 Patient presents with altered mental status and possible facial droop in the setting of a recent subdural, now resolved Looks very weak Looks dehydrated We will give fluids and check CT. CT shows 5.5 mm right subdural with scant shiftconfirm with radiology After about half an hour is able to contact [facility] and speak with Dr. Flores who interpreted the patient's head CT and read me the read from 328it appears to be about the same Questionable rebleed versus dehydration and recrudescence Patient will need to be admitted but will require neurosurgery and trauma servic es Discussed with Dr. Nieves who is accept the patient to a surgical floor bed Discussed with family at length Given fluid bolus for hypotension - Vital Signs Vital signs: Temp Pulse Resp BP Pulse Ox 72 15 114/50 L 99 11/07/19 14:48 11/07/19 16:01 11/07/19 16:00 11/07/19 16:01 - Laboratory Result Diagrams: 11/07/19 14:40 11/07/19 14:40 Laboratory results interpreted by me: 11/07/19 11/07/19 11/07/19 14:40 14:40 15:08 RBC 3.39 L Hgb 10.7 L Hct 32.1 L RDW 18.0 H Plt Count 105 L Lymph % (Auto) 51.1 H Sodium 136.8 L Anion Gap 4 L ALT 68 H Alkaline Phosphatase 149 H Creatine Kinase < 20 L Total Protein 6.1 L Albumin 3.0 L Urine Urobilinogen 2.0 H Urine Ascorbic Acid 20 H Critical Care Note - Critical Care Note Total time excluding time spent on procedures (mins): 35 Comments: The above patient is critically ill. Not including procedures, but including direct re-evaluations, speaking with patient and/or consultants, interpreting results, and documenting, I spent the total amount of minute listed listed above on critical care time Discharge - Discharge Clinical Impression: Subdural hematoma Condition: Good Disposition: [facility] Referrals: APARNA GAMEZ MD [ACTIVE STAFF] - Follow up as needed
[2019-11-07] MEDS ORDERED: NORMAL SALINE 1000 ML 1,000 ML IV ONE ×2 (15:04→17:39)
[2019-11-07 15:10] LABS: ABSOLUTE LYMPHOCYTES (AUTO) 4.1 10^3/uL (0.5-4.7); ABSOLUTE MONOCYTES (AUTO) 0.5 10^3/uL (0.1-1.4); ABSOLUTE NEUT (AUTO) 3.4 10^3/uL (1.7-8.2); BASOPHILS % (AUTO) 0.2 % (0-2); EOSINOPHILS % (AUTO) 0.4 % (0-6); HEMATOCRIT 32.1 % (37.9-51.0); HEMOGLOBIN 10.7 g/dL (13.5-17.0); LYMPHOCYTES % (AUTO) 51.1 % (13-45); MEAN CORPUSCULAR HEMOGLOBIN 31.6 pg (27.0-33.4); MEAN CORPUSCULAR HGB CONC 33.4 g/dL (32.0-36.0); MEAN CORPUSCULAR VOLUME 95 fl (80-97); MONOCYTES % (AUTO) 6.2 % (3-13); PLATELET COUNT 105 10^3/uL (150-450); RED BLOOD COUNT 3.39 10^6/uL (4.35-5.55); SEGMENTED NEUTROPHILS % (AUTO) 42.1 % (42-78); TOTAL CELLS COUNTED % (AUTO) 100 %; WHITE BLOOD COUNT 8.1 10^3/uL (4.0-10.5)
[2019-11-07 15:18] LABS: PARTIAL THROMBOPLASTIN TIME 30.9 SEC (23.5-35.8)
--- NOTE | 2019-11-07 15:29 | RADIOLOGY REPORT (SQ) ---
EXAM DESCRIPTION: CT HEAD WITHOUT IMAGES COMPLETED DATE/TIME: 11/07/2019 1:55 pm REASON FOR STUDY: STROKE. COMPARISON: 10/21/2019 TECHNIQUE: Axial images acquired through the brain without intravenous contrast. Images reviewed wi th bone, brain and subdural windows. Additional sagittal and coronal reconstructions were generated. Images stored on PACS. All CT scanners at this facility use dose modulation, iterative reconstruction, and/or weight based d osing when appropriate to reduce radiation dose to as low as reasonably achievable (ALARA). [facility]: Dose Right [facility]: CareDose [facility]: Dose Right [facility]: Teradose 4D [facility]: [employer] RADIATION DOSE: CT Rad equipment meets quality standard of care and radiation dose reduction techniq ues were employed. CTDIvol: 48.6 mGy. DLP: 905 mGy-cm. mGy. LIMITATIONS: None. FINDINGS: VENTRICLES: Mild prominence of the ventricles and sulci consistent with mild cerebral and cerebellar atrophy. No evidence of hydrocephalus. No intraventricular hemorrhage. CEREBRUM: No masses. No hemorrhage. No midline shift. No evidence for acute infarction. Normal gra y-white matter differentiation. Patchy periventricular and deep white matter hypodense attenuation c onsistent with mild chronic small vessel ischemic change. There is intracranial atherosclerosis. CEREBELLUM: No masses. No hemorrhage. No alteration of density. No evidence for acute infarction. EXTRAAXIAL SPACES: There is a new small right temporoparietal subdural hematoma measuring up to 6 mm thickness with mild mass effect on the right cerebral hemisphere with mild flattening of the sulci. Hemorrhage extends approximately 8.9 cm from anterior to posterior. No subarachnoid or parenchymal c omponent. ORBITS AND GLOBE: No intra- or extraconal masses. Normal contour of globe without masses. CALVARIUM: No fracture. PARANASAL SINUSES: No fluid or mucosal thickening. SOFT TISSUES: No mass or hematoma. OTHER: No other significant finding. IMPRESSION: 1. New small right temporoparietal subdural hematoma. No midline shift or evidence of herniation. 2. Mild chronic small vessel ischemic change. 3. No acute parenchymal hemorrhage, mass or evidence of acute territorial infarct. EVIDENCE OF ACUTE STROKE: NO. COMMENT: Findings discussed with Dr. Davison on 11/07/2019 at 1522 hours. Quality ID # [id number]: Final reports with documentation of one or more dose reduction techniques (e.g., Au tomated exposure control, adjustment of the mA and/or kV according to patient size, use of iterative reconstruction technique) TECHNICAL DOCUMENTATION: JOB ID: [id number] 2010 [employer]- All Rights Reserved Reading location - IP/workstation name: [email or web address]
[2019-11-07 15:30] LABS: APPEARANCE,URINE CLEAR; BILIRUBIN,URINE NEGATIVE (NEGATIVE); COLOR,URINE YELLOW; GLUCOSE, URINE NEGATIVE (NEGATIVE); KETONES,URINE NEGATIVE (NEGATIVE); LEUKOCYTE ESTERASE,URINE NEGATIVE (NEGATIVE); NITRITE,URINE NEGATIVE (NEGATIVE); PROTEIN,URINE NEGATIVE (NEGATIVE); URINE SPECIFIC GRAVITY 1.016
[2019-11-07 15:39] LABS: ALKALINE PHOSPHATASE 149 U/L (38-126); ASPARTATE AMINO TRANSFERASE 42 U/L (17-59); BILIRUBIN,DIRECT 0.2 mg/dL (0.0-0.4); BILIRUBIN,TOTAL 0.8 mg/dL (0.2-1.3); BLOOD UREA NITROGEN 16 mg/dL (7-20); CALCIUM 8.8 mg/dL (8.4-10.2); CARBON DIOXIDE 27 mmol/L (22-30); CHLORIDE 106 mmol/L (98-107); GLUCOSE 81 mg/dL (75-110); POTASSIUM 4.5 mmol/L (3.6-5.0); TOTAL PROTEIN 6.1 g/dL (6.3-8.2)
[2019-11-07 15:40] LABS: CREATINE KINASE < 20 U/L (55-170); INTERNATIONAL RATION (INR) 1.06; PROTHROMBIN TIME 13.8 SEC (11.4-15.4)
[2019-11-07 15:47] LABS: ANION GAP 4 (5-19)
[2019-11-07 16:05] LABS: CREATINE KINASE MB 0.64 ng/mL (<4.55); TROPONIN I < 0.012 ng/mL
[2019-11-07 18:24] VITALS: BP 110/46
--- NOTE | 2019-11-08 16:18 | EKG REPORT ---
SEVERITY:- ABNORMAL ECG - SINUS RHYTHM LEFT BUNDLE BRANCH BLOCK : Confirmed by: Marija Carroll 08-Nov-2019 16:18:10
== END 2019-11-07 18:48 | disposition short-term general hospital (02) ==
LOC: ER 14:48
DX: S06.5X9A Traumatic subdural hemorrhage with loss of consciousness of unspecified duration, initial encounter (principal); X58.XXXA Exposure to other specified factors, initial encounter; R47.01 Aphasia; R41.82 Altered mental status, unspecified; I95.9 Hypotension, unspecified
CPT/HCPCS: 93005; 99291; 96360; 96361; 36415; 82553; 82962; 82550; 83735; 85025; 85610; 85730; 80053; 81001; 84484; 70450; 93010; J7030

== ENCOUNTER → 2019-12-04 | Outpatient (CLI) | payer MEDICARE, OTHER | LOC: OD 11:52 | PROVIDERS: ATTEND Family Medicine | DX: E03.9 Hypothyroidism, unspecified (principal) | CPT/HCPCS: 36415; 84443 ==

== ENCOUNTER → 2019-12-09 | Outpatient (CLI) | payer MEDICARE, OTHER ==
--- NOTE | 2019-12-09 14:30 | RADIOLOGY REPORT (SQ) ---
EXAM DESCRIPTION: CHEST PA/LATERAL IMAGES COMPLETED DATE/TIME: 12/09/2019 2:06 pm REASON FOR STUDY: PLEURODYNIA COMPARISON: AP view of the chest from 10/12/2019 and PA and lateral views of the chest from 09/19/2019. EXAM PARAMETERS: NUMBER OF VIEWS: two views TECHNIQUE: PA and lateral views of the chest were obtained RADIATION DOSE: NA LIMITATIONS: none FINDINGS: LUNGS AND PLEURA: The left lateral costophrenic sulcus is blunted. There is no consolidat ion, pleural effusion or pneumothorax. MEDIASTINUM AND HILAR STRUCTURES: Atherosclerotic calcification of the aortic arch. HEART AND VASCULAR STRUCTURES: The cardiac silhouette is borderline enlarged. The pulmonary vasculat ure is within normal limits. BONES: No acute findings. HARDWARE: Status post median sternotomy and CABG. There is an intact single lead ICD in place. OTHER: No other finding. IMPRESSION: Small left pleural effusion. TECHNICAL DOCUMENTATION: JOB ID: [id number] 2010 [employer]- All Rights Reserved Reading location - IP/workstation name: [email or web address]
[2019-12-12 16:22] LABS: APPEARANCE,URINE CLEAR; BILIRUBIN,URINE NEGATIVE (NEGATIVE); COLOR,URINE YELLOW; GLUCOSE, URINE NEGATIVE (NEGATIVE); KETONES,URINE NEGATIVE (NEGATIVE); LEUKOCYTE ESTERASE,URINE NEGATIVE (NEGATIVE); NITRITE,URINE NEGATIVE (NEGATIVE); PROTEIN,URINE NEGATIVE (NEGATIVE); URINE SPECIFIC GRAVITY 1.017; UROBILINOGEN,URINE NEGATIVE mg/dL (<2.0)
== END ==
LOC: OD 13:48
PROVIDERS: ATTEND Family Medicine
DX: J90 Pleural effusion, not elsewhere classified (principal); R07.81 Pleurodynia; R35.0 Frequency of micturition
CPT/HCPCS: 71046; 81001; 87086; 87088